=== PATIENT | female | born 1950 | race Caucasian/White ===

== ENCOUNTER → 2017-09-26 | Outpatient (REF) | payer MEDICARE ==
[2017-09-26 12:41] LABS: BASO # 0.1 10^3/uL (0.0-0.2); BASO % 0.8 % (0.0-1.0); EOS # 0.2 10^3/uL (0.0-0.50); EOS % 2.1 % (0.0-3.0); HEMATOCRIT 42.1 % (36.0-47.0); HEMOGLOBIN 13.7 g/dl (12.0-16.0); IMMATURE GRANULOCYTE % 0.1 % (0-3.0); LYMPH # 2.2 10^3/uL (1.5-4.5); LYMPH % 31.5 % (24.0-44.0); MEAN CORPUSCULAR HEMOGLOBIN 30.2 pg (27.0-33.0); MEAN CORPUSCULAR HGB CONC 32.5 g/dl (32.0-36.5); MEAN CORPUSCULAR VOLUME 92.9 fl (80.0-96.0); MONO # 0.7 10^3/uL (0.0-0.8); MONO % 9.6 % (0.0-5.0); NEUTROPHILS % 55.9 % (36.0-66.0); PLATELET COUNT, AUTOMATED 287 10^3/uL (150-450); RED BLOOD COUNT 4.53 10^6/uL (4.00-5.40); RED CELL DISTRIBUTION WIDTH 14.2 % (11.5-14.5); WHITE BLOOD COUNT 7.1 10^3/uL (4.0-10.0)
[2017-09-26 13:24] LABS: ALBUMIN/GLOBULIN RATIO 1.08 (1.00-1.93); ALKALINE PHOSPHATASE 76 U/L (45-117); ALT/SGPT 26 U/L (12-78); ANION GAP 5 MEQ/L (8-16); AST/SGOT 23 U/L (7-37); BILIRUBIN,TOTAL 0.4 MG/DL (0.2-1.0); BLOOD UREA NITROGEN 20 MG/DL (7-18); CARBON DIOXIDE LEVEL 31 MEQ/L (21-32); CHLORIDE LEVEL 104 MEQ/L (98-107); CHOLESTEROL LEVEL 242 MG/DL (<200); CHOLESTEROL RISK RATIO 2.122 (<5); CREATININE FOR GFR 0.72 MG/DL (0.55-1.30); FREE T4 1.05 NG/DL (0.76-1.46); GLOMERULAR FILTRATION RATE > 60.0 (>45); GLUCOSE, FASTING 99 MG/DL (70-100); HDL CHOLESTEROL 114 MG/DL (>40); LDL CHOLESTEROL 111.4 MG/DL (<100); NON-HDL-C 128 MG/DL; POTASSIUM SERUM 4.3 MEQ/L (3.5-5.1); SODIUM LEVEL 140 MEQ/L (136-145); THYROID STIMULATING HORMONE 0.773 uIU/ML (0.358-3.740); TOTAL PROTEIN 7.7 GM/DL (6.4-8.2); TRIGLYCERIDES LEVEL 83 MG/DL (<150)
[2017-09-26 13:56] LABS: HEP C VIRUS AB SCREEN MEDICARE < 0.0 INDEX (<0.8)
== END ==
LOC: M SFHCPLAZ 09:28
DX: K51.20 Ulcerative (chronic) proctitis without complications (principal); Z13.220 Encounter for screening for lipoid disorders; F41.9 Anxiety disorder, unspecified; Z11.59 Encounter for screening for other viral diseases; Z79.899 Other long term (current) drug therapy; Z23 Encounter for immunization
CPT/HCPCS: 84443

== ENCOUNTER → 2018-01-29 | Outpatient (REF) | payer MEDICARE | LOC: M SFHCWAGY 08:58 | DX: Z12.4 Encounter for screening for malignant neoplasm of cervix (principal); N95.2 Postmenopausal atrophic vaginitis | CPT/HCPCS: G0123 ==

== ENCOUNTER → 2018-01-29 | Outpatient (CLI) | payer MEDICARE | LOC: M WHC 08:26 | DX: Z12.31 Encounter for screening mammogram for malignant neoplasm of breast (principal); Z78.0 Asymptomatic menopausal state; Z12.12 Encounter for screening for malignant neoplasm of rectum; Z85.3 Personal history of malignant neoplasm of breast; Z92.89 Personal history of other medical treatment; Z12.4 Encounter for screening for malignant neoplasm of cervix; N95.2 Postmenopausal atrophic vaginitis | CPT/HCPCS: 77067; G0123 ==

== ENCOUNTER → 2018-02-03 | Outpatient (CLI) | payer MEDICARE | LOC: M WHC 07:53 | DX: N95.9 Unspecified menopausal and perimenopausal disorder (principal) | CPT/HCPCS: 77080 ==

== ENCOUNTER 2018-09-14 07:12 | Day surgery (SDC) | payer MEDICARE ==
[~2018-09-14] VITALS: Ht 162.6 cm; Wt 53.5 kg
[~2018-09-14 07:12] MED LIST: ASAC800T3 PO; CALCTAB68 PO; LIDOCAINE 2% INJ 100 MG/5 ML SDV (FOR ANES.) As Ordered ONE; MULT1TAB18 PO; NS 1,000 ML IV ONE; PARO20TA4 PO; PROPOFOL 200 MG/20 ML VIAL As Ordered ONE
--- NOTE | 2018-09-14 09:02 | ROOR ---
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 Procedure: Pre-Anesthesia Assessment: - The heart rate, respiratory rate, oxygen saturations, blood pressure, adequacy of pulmonary ventilation, and response to care were monitored throughout the procedure. The Colonoscope was introduced through the anus and advanced to the terminal ileum, with identification of the appendiceal orifice and IC valve. The colonoscopy was performed without difficulty. The patient tolerated the procedure well. The quality of the bowel preparation was excellent. Findings: The perianal and digital rectal examinations were normal. Non-bleeding internal hemorrhoids were found during retroflexion. The hemorrhoids were small and Grade I (internal hemorrhoids that do not prolapse). No other significant abnormalities were identified in a careful examination of the remainder of the colon. The exam was otherwise without abnormality on direct and retroflexion views. Background biopsies were taken for histology with a cold forceps from the ascending colon, right colon and rectum. These biopsy specimens were sent to Pathology. The exam was otherwise without abnormality on direct and retroflexion views. The terminal ileum appeared normal. Impression: - Non-bleeding internal hemorrhoids. - The examination was otherwise normal on direct and retroflexion views. - The examination was otherwise normal on direct and retroflexion views. - The examined portion of the ileum was normal. - Background biopsies were taken from the ascending colon, right colon and rectum. - The exam was otherwise normal to the cecum. Recommendation: - Patient has a contact number available for emergencies. The signs and symptoms of potential delayed complications were discussed with the patient. Return to normal activities tomorrow. Written discharge instructions were provided to the patient. - High fiber diet. - Discharge patient to home. - Continue present medications. - Await pathology results. - Telephone GI clinic for pathology results in 1 week. - Repeat colonoscopy in 5 years for surveillance based on pathology results. - Return to referring physician. - The findings and recommendations were discussed with the patient's family. Bobby Castañeda MD Bobby Castañeda MD 09/14/2018 9:01:28 AM This report has been signed electronically. Number of Addenda: 0 Note Initiated On: 09/14/2018 8:32 AM Estimated Blood Loss: Estimated blood loss: none.
[2018-09-14 09:30] VITALS: BP 131/68
== END 2018-09-14 09:33 | disposition home or self-care (01) ==
LOC: M OPP 07:12
PROVIDERS: ATTEND Internal Medicine Gastroenterology
DX: K51.20 Ulcerative (chronic) proctitis without complications (principal); K64.0 First degree hemorrhoids; Z88.1 Allergy status to other antibiotic agents

== ENCOUNTER → 2019-05-31 | Outpatient (REF) | payer MEDICARE ==
[~2019-05-31] MED LIST changes: -LIDOCAINE 2% INJ 100 MG/5 ML SDV (FOR ANES.) As Ordered ONE; -NS 1,000 ML IV ONE; -PROPOFOL 200 MG/20 ML VIAL As Ordered ONE
[2019-05-31 10:31] LABS: BLOOD UREA NITROGEN 19 MG/DL (7-18); CALCIUM LEVEL 9.8 MG/DL (8.8-10.2); CARBON DIOXIDE LEVEL 30 MEQ/L (21-32); CHLORIDE LEVEL 107 MEQ/L (98-107); CHOLESTEROL LEVEL 237 MG/DL (<200); CREATININE FOR GFR 0.87 MG/DL (0.55-1.30); GLOMERULAR FILTRATION RATE > 60.0 (>45); GLUCOSE, FASTING 101 MG/DL (70-100); HDL CHOLESTEROL 115 MG/DL (>40); LDL CHOLESTEROL 112 MG/DL (<100); NON-HDL-C 122 MG/DL; POTASSIUM SERUM 4.6 MEQ/L (3.5-5.1); SODIUM LEVEL 143 MEQ/L (136-145); THYROID STIMULATING HORMONE 0.989 uIU/ML (0.358-3.740); TRIGLYCERIDES LEVEL 48 MG/DL (<150)
== END ==
LOC: M SFHCPLAZ 07:53
PROVIDERS: ATTEND Nurse Practitioner Family
DX: E78.2 Mixed hyperlipidemia (principal)

== ENCOUNTER → 2019-08-04 | Outpatient (CLI) | payer MEDICARE ==
--- NOTE | 2019-08-04 15:54 | REPMRS ---
Patient History The patient states she had a clinical breast exam in 2018. No known family history of cancer. Benign excisional biopsy of the right breast, 2010. Digital Woman Screen Mammo: August 04, 2019 - Exam #: [id number] Bilateral CC and MLO view(s) were taken. Technologist: Tabby Marquez, Technologist Prior study comparison: January 29, 2018, bilateral digital woman screen mammo performed at [facility]. January 25, 2014, digital woman screen mammo performed at [facility] [place]. January 07, 2013, bilateral digital mammo screening bilat, performed at [facility]. FINDINGS: The breast tissue is heterogeneously dense. This may lower the sensitivity of mammography. There is a moderate amount of heterogeneously dense fibroglandular tissue which is fairly symmetric. There is no interval development of dominant mass, architectural distortion, or grouped microcalcification typical of malignancy. There has been no change in the appearance of the mammogram from the prior studies. 3-D tomosynthesis shows no additional findings. Assessment: BI-RADS/ACR category 1 mammogram. Negative Mammogram. Recommendation Routine screening mammogram of both breasts in 1 year (for women over age 40). This mammogram was interpreted with the aid of an FDA-approved computer-aided dectection system. Electronically Signed By: Denny Chatman MD 08/04/19 [id number]
== END ==
LOC: M WHC 13:27
PROVIDERS: ATTEND Nurse Practitioner Family
DX: Z12.31 Encounter for screening mammogram for malignant neoplasm of breast (principal); Z86.018 Personal history of other benign neoplasm

== ENCOUNTER → 2020-04-25 | Emergency (ER) | payer MEDICARE ==
[~2020-04-25] MED LIST changes: +AMOX875T2 PO; +ISOVUE-370 76% 100ML VIAL As Ordered ONE; +VALA1TAB5 PO
[2020-04-25 10:19] LABS: BASO # 0.1 10^3/uL (0.0-0.2); BASO % 0.8 % (0.0-1.0); EOS # 0.1 10^3/uL (0.0-0.5); EOS % 1.6 % (0.0-3.0); HEMATOCRIT 46.1 % (36.0-47.0); HEMOGLOBIN 15.2 g/dl (12.0-15.5); LYMPH # 2.4 10^3/uL (1.5-5.0); LYMPH % 38.1 % (24.0-44.0); MEAN CORPUSCULAR HEMOGLOBIN 30.7 pg (27.0-33.0); MEAN CORPUSCULAR VOLUME 93.1 fl (80.0-96.0); MONO # 0.6 10^3/uL (0.0-0.8); MONO % 9.7 % (0.0-5.0); NEUTROPHILS # 3.1 10^3/uL (1.5-8.5); NEUTROPHILS % 49.5 % (36.0-66.0); PLATELET COUNT, AUTOMATED 267 10^3/uL (150-450); RED BLOOD COUNT 4.95 10^6/uL (4.00-5.40); WHITE BLOOD COUNT 6.2 10^3/uL (4.0-10.0)
[2020-04-25 11:41] LABS: BLOOD UREA NITROGEN 14 MG/DL (7-18); CALCIUM LEVEL 9.6 MG/DL (8.8-10.2); CARBON DIOXIDE LEVEL 29 MEQ/L (21-32); CHLORIDE LEVEL 104 MEQ/L (98-107); CREATININE FOR GFR 0.93 MG/DL (0.55-1.30); GLOMERULAR FILTRATION RATE > 60.0 (>45); GLUCOSE, FASTING 106 MG/DL (70-100); POTASSIUM SERUM 3.7 MEQ/L (3.5-5.1); SODIUM LEVEL 138 MEQ/L (136-145)
== END | disposition home or self-care (01) ==
LOC: M ED 08:46
DX: J38.4 Edema of larynx (principal); B02.8 Zoster with other complications; Z88.2 Allergy status to sulfonamides; Z79.899 Other long term (current) drug therapy
CPT/HCPCS: 36415; 70491; 80048; 85025; 87081; Q9967

== ENCOUNTER → 2020-05-05 | Outpatient (CLI) | payer MEDICARE ==
[~2020-05-05] MED LIST changes: +E-Z-GAS II EFFERVESCENT PACKET (SODIUM BICARB./CITRIC ACID/SIMETHICONE) As Ordered ONE; +E-Z-HD 98% w/w 340GM SUSP BTL As Ordered ONE; +E-Z-PAQUE 96% w/w SUSP 176GM BTL As Ordered ONE; -ISOVUE-370 76% 100ML VIAL As Ordered ONE
--- NOTE | 2020-05-17 10:09 | REP ---
ESOPHAGRAM AIR CONTRAST The procedure was performed under the direct supervision of Dr. Chatman. The images were reviewed with Dr. Chatman. A single view PA chest x-ray is submitted as a grain oilseed or pasture farm worker film. The superior mediastinal structures are midline. The heart size is within normal limits. The lungs are clear. Liquid barium and gas-producing granules were given in the erect position, as well as liquid barium in the prone oblique positions in order to perform a double-contrast esophagram examination. The oral and pharyngeal stages of deglutition are unremarkable. Note was made of degenerative disc disease in the cervical spine. Esophageal transport is prompt and efficient, and there is no esophagitis, stricture, mucosal ring, or hiatal hernia. Gastroesophageal reflux is not demonstrated on this examination. IMPRESSION: Essentially unremarkable double contrast esophagram examination. 0.6 minutes of fluoroscopy time was utilized for this procedure. [facility]
== END ==
LOC: M RAD 08:07
PROVIDERS: ATTEND Physician Assistant Medical
DX: R13.10 Dysphagia, unspecified (principal)

== ENCOUNTER → 2020-05-12 | Outpatient (CLI) | payer MEDICARE ==
[~2020-05-12] MED LIST changes: -E-Z-GAS II EFFERVESCENT PACKET (SODIUM BICARB./CITRIC ACID/SIMETHICONE) As Ordered ONE; -E-Z-HD 98% w/w 340GM SUSP BTL As Ordered ONE; -E-Z-PAQUE 96% w/w SUSP 176GM BTL As Ordered ONE; +LIDOCAINE 1% MDV 20ML VIAL As Ordered ONE; +SODIUM BICARBONATE 8.4% INJ 50MEQ 50 ML VIAL As Ordered ONE
[2020-05-12 13:04] VITALS: BP 151/78
--- NOTE | 2020-05-17 10:11 | REP ---
THYROID ULTRASOUND HISTORY: Nontoxic goiter. COMPARISON STUDY: CT neck 04/25/2020. TECHNIQUE: Real-time sonographic evaluation of the thyroid is performed. Both lobes are moderately enlarged and diffusely heterogeneous in echotexture. Right lobe measures 6.3 x 2.1 x 1.9 cm and left lobe 6.6 x 1.7 x 2.8 cm. In the right lobe, there are multiple diffuse tiny cystic areas subcentimeter in size with a nodular echotexture pattern diffusely. There does appear to be a vague oval nodule containing a few microcalcifications in the inferior aspect of the right lobe. This measures approximately 2 cm in diameter maximally. We will proceed with ultrasound-guided fine needle aspiration (FNA) of this nodule. On the left, there are similar findings of scattered tiny cystic areas subcentimeter in size. There is a dominant oval heterogeneous solid nodule, which appears to contain a few small calcifications. This measures 3.6 x 2.2 x 2.2 cm. We will proceed with ultrasound-guided fine needle aspiration (FNA) of that nodule. [facility]
--- NOTE | 2020-05-17 10:12 | REP ---
BILATERAL ULTRASOUND-GUIDED FINE NEEDLE ASPIRATION (FNA) This procedure was performed by CALEB Guillory, under the direct supervision of Dr. Shah. The risks and benefits of the procedure were explained to the patient and informed consent was obtained both verbally and written. Directly prior to the start of the procedure, a formal time-out was completed in the exam room. Both thyroid nodules located in the right and left lobes were localized using ultrasound guidance. The skin was prepped, and draped in a sterile fashion. A total of 11 mL of buffered Lidocaine was used as a local anesthetic. Using ultrasound guidance, four fine needle aspirations were obtained of the right thyroid nodule using 25-gauge needles and four fine needle aspirations were obtained of the left thyroid nodule using 25-gauge needles. The patient tolerated the procedure well, and there were no immediate complications. After the appropriate amount of monitored convalescence, the patient was discharged from the department. This exam has been dictated by CALEB Guillory with Dr. Shah. [facility]
== END ==
LOC: M IRPRO 11:45
PROVIDERS: ATTEND Physician Assistant Medical
DX: D34 Benign neoplasm of thyroid gland (principal); E04.9 Nontoxic goiter, unspecified

== ENCOUNTER → 2020-05-24 | Outpatient (CLI) | payer MEDICARE ==
[~2020-05-24] MED LIST changes: -LIDOCAINE 1% MDV 20ML VIAL As Ordered ONE; -SODIUM BICARBONATE 8.4% INJ 50MEQ 50 ML VIAL As Ordered ONE
[2020-05-24 12:21] LABS: FREE T4 1.03 NG/DL (0.76-1.46); THYROID STIMULATING HORMONE 0.537 uIU/ML (0.358-3.740)
== END ==
LOC: M LAB 10:36
PROVIDERS: ATTEND Physician Assistant Medical
DX: E04.9 Nontoxic goiter, unspecified (principal)

== ENCOUNTER 2021-05-06 13:01 | Emergency (ER) | payer MEDICARE ==
[~2021-05-06] VITALS: Ht 160 cm; Wt 125.0 kg
--- NOTE | 2021-05-06 14:24 | REP ---
INDICATION: trauma. COMPARISON: None. TECHNIQUE: Four views of the right wrist were obtained. FINDINGS: There is a comminuted impacted fracture of the distal radius. There is no angulation deformity. There is an avulsion fracture of the ulnar styloid. Additionally, there is a calcification over the dorsum of the wrist consistent with a triquetral fracture of indeterminate age. IMPRESSION: 1. Comminuted impacted distal radial fracture with an associated ulnar styloid fracture (Colles fracture). 2. There is a triquetral fracture of indeterminate age. Incidental Findings: Collies fracture right wrist. The critical information above was relayed directly by me by telephone to Lanie De La Cruz on 05/06/2021 at 2:20 pm with readback verification. <Electronically signed by Demetrio Morocho > 05/06/21 [id number]
[2021-05-06] MEDS ORDERED: ACETAMINOPHEN 325 MG TAB PO ONE (15:25)
[2021-05-06] MEDS ORDERED: LIDOCAINE W/EPINEPHRINE 1% 20ML VIAL SC ONE (15:30)
[2021-05-06 16:23] VITALS: BP 166/81
--- NOTE | 2021-05-06 17:31 | REP ---
INDICATION: fx. COMPARISON: Right wrist, 05/06/2021, 1:17 p.m.. TECHNIQUE: Two views of the right wrist in plaster were obtained. FINDINGS: Frontal lateral views of the right wrist demonstrate excellent alignment of the fracture of the distal radius. The wrist is in plaster. IMPRESSION: Right wrist fracture in plaster. <Electronically signed by Demetrio Morocho > 05/06/21 [id number]
--- NOTE | 2021-05-06 18:04 | CR.PDOC ---
General Date of Consultation: May 06, 2021 Consultation REASON FOR CONSULTATION/CHIEF COMPLAINT: Right distal radius HISTORY OF PRESENT ILLNESS: Patient states that she went rollerblading for the first time in many years today. She unfortunately lost control when she was going down a slope and had a fall on an outstretched hand. She was wearing wrist braces however she had immediate pain to her wrist and was brought to the emergency room where it was noted that she had a distal radius fracture with some comminution and slight apex volar angulation. ALLERGIES: Please see below. HOME MEDICATIONS: Please see below. PAST MEDICAL HISTORY: Noncontributory PAST SURGICAL HISTORY: Noncontributory FAMILY HISTORY: Noncontributory SOCIAL HISTORY: Patient works in [employer] and is right-hand dominant REVIEW OF SYSTEMS: Denies any pain or discomfort aside from right wrist PHYSICAL EXAMINATION: VITAL SIGNS: Please see below. GENERAL APPEARANCE: Alert and oriented no acute distress. EXTREMITIES: Right wrist in splint from emergency room with Carlos wraps. These were taken down. The patient did not demonstrate any skin lacerations or otherwise. There was some swelling but no significant bruising or otherwise. There was some palpable tenderness to the area of the distal radius. NEUROLOGICAL: Grossly neurovascularly intact sensation to median, ulnar and radial nerve distributions. Motor to these as well as the AIN distribution was confirmed. Palpable radial pulse X-ray imaging in the emergency room demonstrated a slightly impacted fracture of the right distal radius without any obvious intra-articular extension LABORATORY DATA: Please see below. ASSESSMENT/PLAN: The patient demonstrates a right distal radius fracture with some slight angulation. The patient had fairly well controlled pain so she was placed in volar and dorsal splint plaster slabs after placement of a stockinette and web roll with three-point molding applied. Patient tolerated the procedure well. She had tolerated the closed reduction without conscious sedation without any known complications. She was found to be grossly neurovascular intact as described above post splinting. X-ray imaging was independently ordered and reviewed by myself post closed reduction and splinting. This demonstrated good alignment of the distal radius fracture. The patient will be seen for follow-up in approximately 1 week with repeat x-ray imaging in the office. She will be transition to a cast at week 1 or 2 and will require immobilization for approximately 6 weeks nonweightbearing to right upper extremity Vital Signs/I&O Vital Signs Date Time Temp Pulse Resp B/P (MAP) Pulse Ox O2 Delivery O2 Flow Rate FiO2 05/06/21 16:23 96.7 81 166/81 (109) 100 05/06/21 13:02 18 Room Air Allergies Coded Allergies: MS - Sulfa Drugs (Unverified Allergy, Intermediate, HIVES, 09/08/18) MS - Sulfa Drugs Cross Reactors (Unverified Allergy, Intermediate, HIVES, 09/08/18) Home Medications Scheduled (Multi Vitamin) 1 Tab Tab, 1 TAB PO DAILY, (Reported) Calcium/Vitamin D (Calcium 600 + D 600-400 mg-Unit) 1 Tab Tab, 1 TAB PO BID, (Reported) Mesalamine (Asacol Hd) 800 Mg Tab, 1,600 MG PO TID, (Reported) Paroxetine HCl (Paroxetine) 20 Mg Tab, 20 MG PO DAILY, (Reported) YULIA SALINAS MD May 06, 2021 18:04
== END 2021-05-06 18:00 | disposition home or self-care (01) ==
LOC: M ED 13:01
DX: S52.531A Colles' fracture of right radius, initial encounter for closed fracture (principal); Y92.9 Unspecified place or not applicable; Y93.51 Activity, roller skating (inline) and skateboarding; Y99.9 Unspecified external cause status; Z88.1 Allergy status to other antibiotic agents; Z88.2 Allergy status to sulfonamides; Z88.8 Allergy status to other drugs, medicaments and biological substances

== ENCOUNTER → 2021-05-14 | Outpatient (CLI) | payer MEDICARE ==
--- NOTE | 2021-05-14 10:22 | REP ---
INDICATION: RT WRIST FX. COMPARISON: Comparison wrist radiographs May 06, 2021. TECHNIQUE: AP and lateral views. X-rays through cast material. FINDINGS: AP and lateral views of the right wrist demonstrate a distal radial metaphyseal fracture nondisplaced. IMPRESSION: X-rays through cast material demonstrate nondisplaced distal radial fracture. <Electronically signed by Denny Chatman > 05/14/21 101
== END ==
LOC: M SOG 09:34
PROVIDERS: ATTEND Orthopaedic Surgery Adult Reconstructive Orthopaedic Surgery
DX: S52.501A Unspecified fracture of the lower end of right radius, initial encounter for closed fracture (principal); X58.XXXA Exposure to other specified factors, initial encounter; Y92.9 Unspecified place or not applicable

== ENCOUNTER → 2021-06-21 | Outpatient (CLI) | payer MEDICARE ==
--- NOTE | 2021-06-21 13:09 | REP ---
INDICATION: RT WRIST FX. COMPARISON: Multiple the latest 05/14/[address] TECHNIQUE: Two views FINDINGS: The previously described distal radial fracture appears to have healed. There is no acute fracture. There is no change in the alignment. IMPRESSION: As above <Electronically signed by Jose R Prescott > 06/21/21 [id number]
== END ==
LOC: M SOG 07:59
PROVIDERS: ATTEND Orthopaedic Surgery Adult Reconstructive Orthopaedic Surgery
DX: S52.501D Unspecified fracture of the lower end of right radius, subsequent encounter for closed fracture with routine healing (principal); X58.XXXD Exposure to other specified factors, subsequent encounter

== ENCOUNTER → 2023-02-27 | Outpatient (CLI) | payer MEDICARE ==
[2023-02-27 10:51] LABS: BASO # 0.1 10^3/uL (0.0-0.2); BASO % 1.2 % (0.0-1.0); EOS # 0.3 10^3/uL (0.0-0.5); EOS % 4.8 % (0.0-3.0); HEMATOCRIT 42.4 % (36.0-47.0); HEMOGLOBIN 13.7 g/dl (12.0-15.5); LYMPH # 2.2 10^3/uL (1.5-5.0); LYMPH % 33.3 % (24.0-44.0); MEAN CORPUSCULAR HEMOGLOBIN 30.6 pg (27.0-33.0); MEAN CORPUSCULAR HGB CONC 32.3 g/dl (32.0-36.5); MEAN CORPUSCULAR VOLUME 94.6 fl (80.0-96.0); MONO # 0.7 10^3/uL (0.0-0.8); MONO % 10.3 % (2.0-8.0); NEUTROPHILS # 3.3 10^3/uL (1.5-8.5); NEUTROPHILS % 50.1 % (36.0-66.0); PLATELET COUNT, AUTOMATED 272 10^3/uL (150-450); RED BLOOD COUNT 4.48 10^6/uL (4.00-5.40); WHITE BLOOD COUNT 6.7 10^3/uL (4.0-10.0)
[2023-02-27 11:16] LABS: ALBUMIN 3.7 G/DL (3.2-5.2); ALKALINE PHOSPHATASE 77 U/L (46-116); ALT/SGPT 22 U/L (7.0-40); AST/SGOT 23 U/L (<34); BILIRUBIN,TOTAL 0.6 MG/DL (0.3-1.2); BLOOD UREA NITROGEN 18 MG/DL (9-23); CALCIUM LEVEL 10.3 MG/DL (8.3-10.6); CARBON DIOXIDE LEVEL 29 MMOL/L (20-31); CHLORIDE LEVEL 104 MMOL/L (98-107); CHOLESTEROL LEVEL 217 MG/DL (<200); CHOLESTEROL RISK RATIO 2.24 (<5); CREATININE FOR GFR 0.77 MG/DL (0.55-1.30); GLOMERULAR FILTRATION RATE > 60.0 (>39); GLUCOSE, FASTING 100 MG/DL (74-106); HDL CHOLESTEROL 96.6 MG/DL (>40); NON-HDL-C 120.4 MG/DL; POTASSIUM SERUM 4.3 MMOL/L (3.5-5.1); SODIUM LEVEL 139 MMOL/L (136-145); TRIGLYCERIDES LEVEL 57 MG/DL (<150)
[2023-02-27 11:18] LABS: TOTAL 25(OH) VITAMIN D 37.4 NG/ML (20.0-100.0)
== END ==
LOC: M PLALAB 07:58
PROVIDERS: ATTEND Nurse Practitioner Family
DX: K51.919 Ulcerative colitis, unspecified with unspecified complications (principal); E78.5 Hyperlipidemia, unspecified; F41.9 Anxiety disorder, unspecified; E55.9 Vitamin D deficiency, unspecified

== ENCOUNTER → 2023-02-27 | Outpatient (CLI) | payer MEDICARE | LOC: M WHC 06:58 | PROVIDERS: ATTEND Nurse Practitioner Family | DX: Z12.31 Encounter for screening mammogram for malignant neoplasm of breast (principal); M85.88 Other specified disorders of bone density and structure, other site; M81.0 Age-related osteoporosis without current pathological fracture; K51.919 Ulcerative colitis, unspecified with unspecified complications; E78.5 Hyperlipidemia, unspecified; F41.9 Anxiety disorder, unspecified; E55.9 Vitamin D deficiency, unspecified ==

== ENCOUNTER → 2024-03-31 | Outpatient (CLI) | payer MEDICARE ==
[2024-03-31 11:10] LABS: BASO # 0.1 10^3/uL (0.0-0.2); BASO % 1.3 % (0.0-1.0); EOS # 0.3 10^3/uL (0.0-0.5); EOS % 4.2 % (0.0-3.0); HEMATOCRIT 41.8 % (36.0-47.0); HEMOGLOBIN 13.6 g/dl (12.0-15.5); LYMPH # 2.4 10^3/uL (1.5-5.0); LYMPH % 34.8 % (24.0-44.0); MEAN CORPUSCULAR HEMOGLOBIN 31.1 pg (27.0-33.0); MEAN CORPUSCULAR HGB CONC 32.5 g/dl (32.0-36.5); MEAN CORPUSCULAR VOLUME 95.4 fl (80.0-96.0); MONO # 0.8 10^3/uL (0.0-0.8); MONO % 10.9 % (2.0-8.0); NEUTROPHILS # 3.4 10^3/uL (1.5-8.5); NEUTROPHILS % 48.5 % (36.0-66.0); PLATELET COUNT, AUTOMATED 259 10^3/uL (150-450); RED BLOOD COUNT 4.38 10^6/uL (4.00-5.40)
[2024-03-31 11:33] LABS: ALBUMIN 3.5 G/DL (3.2-5.2); ALKALINE PHOSPHATASE 87 U/L (46-116); ALT/SGPT 22 U/L (7.0-40); AST/SGOT 23 U/L (<34); BILIRUBIN,TOTAL 0.4 MG/DL (0.3-1.2); BLOOD UREA NITROGEN 18 MG/DL (9-23); CALCIUM LEVEL 9.6 MG/DL (8.3-10.6); CARBON DIOXIDE LEVEL 30 MMOL/L (20-31); CHLORIDE LEVEL 107 MMOL/L (98-107); CHOLESTEROL LEVEL 214 MG/DL (<200); CHOLESTEROL RISK RATIO 2.39 (<5); CREATININE FOR GFR 0.81 MG/DL (0.55-1.30); GLOMERULAR FILTRATION RATE > 60.0 (>39); GLUCOSE, FASTING 95 MG/DL (74-106); HDL CHOLESTEROL 89.2 MG/DL (>40); LDL CHOLESTEROL 114.4 MG/DL (<100); NON-HDL-C 124.8 MG/DL; POTASSIUM SERUM 4.4 MMOL/L (3.5-5.1); SODIUM LEVEL 141 MMOL/L (136-145); TOTAL PROTEIN 7.1 G/DL (5.7-8.2); TRIGLYCERIDES LEVEL 52 MG/DL (<150)
[2024-03-31 11:34] LABS: THYROID STIMULATING HORMONE 0.646 uIU/ML (0.55-4.78)
== END ==
LOC: M PLALAB 07:02
PROVIDERS: ATTEND Nurse Practitioner Family
DX: E78.5 Hyperlipidemia, unspecified (principal); E55.9 Vitamin D deficiency, unspecified; K51.919 Ulcerative colitis, unspecified with unspecified complications; F41.9 Anxiety disorder, unspecified

== ENCOUNTER → 2024-04-01 | Outpatient (CLI) | payer MEDICARE | LOC: M WHC 07:04 | PROVIDERS: ATTEND Nurse Practitioner Family | DX: Z12.31 Encounter for screening mammogram for malignant neoplasm of breast (principal) ==

== ENCOUNTER → 2024-05-24 | Outpatient (CLI) | payer MEDICARE | LOC: M PLAIMG 10:25 | PROVIDERS: ATTEND Nurse Practitioner Family | DX: J40 Bronchitis, not specified as acute or chronic (principal) ==

== ENCOUNTER → 2024-11-29 | Day surgery (SDC) | payer MEDICARE ==
[~2024-11-29] VITALS: Ht 160 cm; Wt 53.8 kg
[~2024-11-29] MED LIST changes: +MESA400C2 PO; +propofoL 200 MG/20 ML VIAL As Ordered ONE
[2024-11-29 12:47] VITALS: TEMP 97
[2024-11-29 13:15] VITALS: BP 147/67; O2SAT 96
== END | disposition home or self-care (01) ==
LOC: M OPP 11:24
PROVIDERS: ATTEND Internal Medicine Gastroenterology
DX: K51.20 Ulcerative (chronic) proctitis without complications (principal); K63.89 Other specified diseases of intestine; K52.9 Noninfective gastroenteritis and colitis, unspecified; F10.10 Alcohol abuse, uncomplicated; R12 Heartburn; F41.9 Anxiety disorder, unspecified; F32.A Depression, unspecified; Z88.2 Allergy status to sulfonamides

== ENCOUNTER → 2024-12-06 | Outpatient (CLI) | payer MEDICARE ==
[~2024-12-06] MED LIST changes: -propofoL 200 MG/20 ML VIAL As Ordered ONE
[2024-12-06 18:19] LABS: BASO # 0.1 10^3/uL (0.0-0.2); BASO % 0.6 % (0.0-1.0); EOS # 0.1 10^3/uL (0.0-0.5); EOS % 0.5 % (0.0-3.0); LYMPH # 1.6 10^3/uL (1.5-5.0); LYMPH % 16.5 % (24.0-44.0); MEAN CORPUSCULAR HEMOGLOBIN 30.5 pg (27.0-33.0); MEAN CORPUSCULAR HGB CONC 32.4 g/dl (32.0-36.5); MEAN CORPUSCULAR VOLUME 94.1 fl (80.0-96.0); MONO # 1.2 10^3/uL (0.0-0.8); MONO % 12.2 % (2.0-8.0); NEUTROPHILS # 6.9 10^3/uL (1.5-8.5); NEUTROPHILS % 69.6 % (36.0-66.0); PLATELET COUNT, AUTOMATED 392 10^3/uL (150-450); RED BLOOD COUNT 3.93 10^6/uL (4.00-5.40); WHITE BLOOD COUNT 9.9 10^3/uL (4.0-10.0)
[2024-12-06 18:25] LABS: ERYTHROCYTE SEDIMENTATION RATE 55 mm/hr (0-30)
== END ==
LOC: M PLALAB 14:56
PROVIDERS: ATTEND Physician Assistant Medical
DX: L03.211 Cellulitis of face (principal)

== ENCOUNTER → 2024-12-08 | Outpatient (CLI) | payer MEDICARE ==
[2024-12-08 15:30] LABS: BASO % 0.5 % (0.0-1.0); EOS # 0.1 10^3/uL (0.0-0.5); EOS % 0.6 % (0.0-3.0); HEMATOCRIT 33.9 % (36.0-47.0); HEMOGLOBIN 11.2 g/dl (12.0-15.5); LYMPH # 1.7 10^3/uL (1.5-5.0); LYMPH % 19.3 % (24.0-44.0); MEAN CORPUSCULAR HEMOGLOBIN 30.8 pg (27.0-33.0); MEAN CORPUSCULAR VOLUME 93.1 fl (80.0-96.0); MONO # 0.5 10^3/uL (0.0-0.8); MONO % 6.1 % (2.0-8.0); NEUTROPHILS # 6.4 10^3/uL (1.5-8.5); NEUTROPHILS % 72.9 % (36.0-66.0); PLATELET COUNT, AUTOMATED 395 10^3/uL (150-450); RED BLOOD COUNT 3.64 10^6/uL (4.00-5.40); WHITE BLOOD COUNT 8.7 10^3/uL (4.0-10.0)
[2024-12-08 15:38] LABS: ERYTHROCYTE SEDIMENTATION RATE 61 mm/hr (0-30)
== END ==
LOC: M PLALAB 14:29
PROVIDERS: ATTEND Physician Assistant Medical
DX: L03.211 Cellulitis of face (principal)

== ENCOUNTER → 2024-12-23 | Outpatient (REF) | payer MEDICARE | LOC: M LAB REF 10:02 | PROVIDERS: ATTEND Internal Medicine Gastroenterology | DX: K50.10 Crohn's disease of large intestine without complications (principal) ==

== ENCOUNTER → 2025-02-15 | Outpatient (CLI) | payer MEDICARE ==
[~2025-02-15] MED LIST changes: +ATEN50TA2 PO; +AZIT-12 PO; +CEFD1CAP9 PO; +HUMI40IN2 SC; +PARO5TAB PO; +TALK1KIT MC
[2025-02-15 09:33] LABS: BASO # 0.1 10^3/uL (0.0-0.2); BASO % 0.5 % (0.0-1.0); EOS # 0.0 10^3/uL (0.0-0.5); EOS % 0.1 % (0.0-3.0); LYMPH # 2.5 10^3/uL (1.5-5.0); LYMPH % 14.5 % (24.0-44.0); MONO # 1.9 10^3/uL (0.0-0.8); MONO % 10.9 % (2.0-8.0); NEUTROPHILS # 12.8 10^3/uL (1.5-8.5); NEUTROPHILS % 73.7 % (36.0-66.0); PLATELET COUNT, AUTOMATED 324 10^3/uL (150-450)
[2025-02-15 09:48] LABS: APPEARANCE, URINE HAZY (CLEAR); BACTERIA, URINE AUTO 1+ (NEGATIVE); BILIRUBIN, URINE AUTO NEGATIVE (NEGATIVE); BLOOD, URINE BLOOD 3+ (NEGATIVE); GLUCOSE, URINE (UA) AUTO NEGATIVE (NEGATIVE); KETONE, URINE AUTO TRACE mg/dL (NEGATIVE); LEUKOCYTE ESTERASE, URINE AUTO NEGATIVE (NEGATIVE); MUCUS, URINE SMALL (NEGATIVE); NITRITE, URINE AUTO NEGATIVE (NEGATIVE); PROTEIN, URINE AUTO 3+ mg/dL (NEGATIVE); RBC, URINE AUTO 128 /HPF (0-3); SPECIFIC GRAVITY URINE AUTO 1.023 (1.002-1.035); SQUAMOUS EPITHELIAL CELL UR AU 1 /HPF (0-6); UROBILINOGEN, URINE AUTO 0.2 mg/dL (0.0-2.0); WBC, URINE AUTO 12 /HPF (0-3)
[2025-02-15 09:56] LABS: ALT/SGPT 28.0 U/L (7.0-40); AST/SGOT 37.0 U/L (<34); CALCIUM LEVEL 8.1 MG/DL (8.3-10.6); CARBON DIOXIDE LEVEL 21.0 MMOL/L (20-31); CHLORIDE LEVEL 101.0 MMOL/L (98-107); CREATININE FOR GFR 1.76 MG/DL (0.55-1.30); GLOMERULAR FILTRATION RATE 30.4 (>39); POTASSIUM SERUM 4.9 MMOL/L (3.5-5.1); SODIUM LEVEL 136.0 MMOL/L (136-145)
== END ==
LOC: M RAD 08:15
PROVIDERS: ATTEND Student in an Organized Health Care Education/Training Program
DX: R50.9 Fever, unspecified (principal); R06.02 Shortness of breath

== ENCOUNTER 2025-02-19 22:16 | Inpatient (IN) | payer MEDICARE ==
[~2025-02-19] VITALS: Ht 160 cm; Wt 55.5 kg
[~2025-02-19 22:16] MED LIST changes: -ATEN50TA2 PO; -AZIT-12 PO; -CEFD1CAP9 PO; -HUMI40IN2 SC; -PARO5TAB PO; -TALK1KIT MC
[2025-02-19 23:31] LABS: BASO # 0.1 10^3/uL (0.0-0.2); BASO % 0.7 % (0.0-1.0); EOS # 0.3 10^3/uL (0.0-0.5); EOS % 1.6 % (0.0-3.0); LYMPH # 3.9 10^3/uL (1.5-5.0); LYMPH % 22.4 % (24.0-44.0); MONO # 1.8 10^3/uL (0.0-0.8); MONO % 10.5 % (2.0-8.0); NEUTROPHILS # 11.3 10^3/uL (1.5-8.5); NEUTROPHILS % 64.3 % (36.0-66.0); PLATELET COUNT, AUTOMATED 464 10^3/uL (150-450)
[2025-02-20] VITALS (9 sets, daily range): BP systolic 125–172; BP diastolic 58–82; TEMP 97.8–98.7; O2SAT 88–95
[2025-02-20 00:04] LABS: ALT/SGPT 20.0 U/L (7.0-40); AST/SGOT 26.0 U/L (<34); CALCIUM LEVEL 8.9 MG/DL (8.3-10.6); CARBON DIOXIDE LEVEL 21.0 MMOL/L (20-31); CHLORIDE LEVEL 99.0 MMOL/L (98-107); CREATININE FOR GFR 1.3 MG/DL (0.55-1.30); GLOMERULAR FILTRATION RATE 43.7 (>39); POTASSIUM SERUM 4.0 MMOL/L (3.5-5.1); SODIUM LEVEL 134.0 MMOL/L (136-145)
[2025-02-20] MEDS: MORPHINE 4 MG/ML 1 ML VIAL IV PRN (00:52)
[2025-02-20] MEDS: ONDANSETRON 4MG 2ML VIAL IV ONE (00:52)
[2025-02-20] MEDS ORDERED: ISOVUE-370 76% 100 ML VIAL As Ordered ONE (00:55)
[2025-02-20] MEDS ORDERED: MAALOX 30 ML SUSP *UDC PO PRN (04:10)
[2025-02-20] MEDS ORDERED: LEVALBUTEROL 1.25 MG 0.5ML CONCENTRATE NEB INH PRN (04:10)
[2025-02-20 05:03] LABS: MAGNESIUM LEVEL 2.2 MG/DL (1.8-2.4)
[2025-02-20 05:24] LABS: INR 1.31
[2025-02-20] MEDS: AZITHROMYCIN INJ 500 MG, VIAL MATE ADAPTER 1 EACH in D5W 250 ML IV SCH (05:27)
[2025-02-20] MEDS ORDERED: AMOX875T2 PO (06:01)
[2025-02-20] MEDS ORDERED: PARO5TAB PO (06:01)
[2025-02-20] MEDS ORDERED: HUMI40IN2 SC (06:01)
[2025-02-20] MEDS ORDERED: AZIT-12 PO (06:01)
[2025-02-20] MEDS ORDERED: HOME MED LIST COMPLETE! XX SCH (06:05)
[2025-02-20] MEDS: cefTRIAXone SOD 2 GM in DEXTROSE 5% (D5W) ADV/MINI-BAG 50 ML IV SCH (06:44)
[2025-02-20] MEDS: IPRATROPIUM 0.5 MG/ALBUTEROL 2.5 MG INH SOL UD 3 ML INH SCH (07:13)
[2025-02-20 14:12] LABS: BASO # 0.1 10^3/uL (0.0-0.2); BASO % 0.5 % (0.0-1.0); EOS # 0.7 10^3/uL (0.0-0.5); EOS % 4.6 % (0.0-3.0); LYMPH # 4.7 10^3/uL (1.5-5.0); LYMPH % 31.3 % (24.0-44.0); MONO # 1.7 10^3/uL (0.0-0.8); MONO % 11.1 % (2.0-8.0); NEUTROPHILS # 7.8 10^3/uL (1.5-8.5); NEUTROPHILS % 51.9 % (36.0-66.0); PLATELET COUNT, AUTOMATED 435 10^3/uL (150-450)
[2025-02-20 14:37] LABS: CALCIUM LEVEL 8.4 MG/DL (8.3-10.6); CARBON DIOXIDE LEVEL 24.0 MMOL/L (20-31); CHLORIDE LEVEL 101.0 MMOL/L (98-107); CREATININE FOR GFR 1.33 MG/DL (0.55-1.30); GLOMERULAR FILTRATION RATE 42.5 (>39); MAGNESIUM LEVEL 2.3 MG/DL (1.8-2.4); POTASSIUM SERUM 3.9 MMOL/L (3.5-5.1); SODIUM LEVEL 137.0 MMOL/L (136-145)
[2025-02-21] VITALS (8 sets, daily range): BP systolic 133–172; BP diastolic 63–80; TEMP 97.3–99; O2SAT 90–96
[2025-02-21 05:21] LABS: BASO # 0.1 10^3/uL (0.0-0.2); BASO % 0.7 % (0.0-1.0); EOS # 1.1 10^3/uL (0.0-0.5); EOS % 6.3 % (0.0-3.0); LYMPH # 4.8 10^3/uL (1.5-5.0); LYMPH % 29.0 % (24.0-44.0); MONO # 1.9 10^3/uL (0.0-0.8); MONO % 11.6 % (2.0-8.0); NEUTROPHILS # 8.6 10^3/uL (1.5-8.5); NEUTROPHILS % 51.6 % (36.0-66.0); PLATELET COUNT, AUTOMATED 406 10^3/uL (150-450)
[2025-02-21 05:41] LABS: CALCIUM LEVEL 7.9 MG/DL (8.3-10.6); CARBON DIOXIDE LEVEL 23.0 MMOL/L (20-31); CHLORIDE LEVEL 104.0 MMOL/L (98-107); CREATININE FOR GFR 1.46 MG/DL (0.55-1.30); GLOMERULAR FILTRATION RATE 38.0 (>39); MAGNESIUM LEVEL 2.2 MG/DL (1.8-2.4); POTASSIUM SERUM 4.5 MMOL/L (3.5-5.1); SODIUM LEVEL 136.0 MMOL/L (136-145)
[2025-02-21] MEDS ORDERED: MESALAMINE 400 MG PO SCH (09:00)
[2025-02-21] MEDS: PARoxetine 10MG TABLET PO SCH (09:10)
[2025-02-21] MEDS: MESALAMINE 400 MG PO SCH (09:10)
[2025-02-21] MEDS: AZITHROMYCIN 250 MG TABLET PO SCH (09:10)
[2025-02-21] MEDS: ACETAMINOPHEN 325 MG TAB PO PRN (11:21)
[2025-02-21] MEDS: LIDOCAINE 1% MDV 20 ML VIAL SC ONE (14:43)
[2025-02-21 14:59] LABS: LDH LACTATE DEHYDROGENASE 254.0 U/L (120-246)
[2025-02-21 15:24] LABS: SOURCE, BODY FLUID GLUCOSE PLEURAL; SOURCE, BODY FLUID TRIG PLEURAL; TRIGLYCERIDE, BODY FLUID 33 MG/DL (NOT ESTABLISHED)
[2025-02-21 15:25] LABS: LDH, BODY FLUID 668 U/L (NOT ESTABLISHED); SOURCE, BODY FLUID LDH PLEURAL
[2025-02-21 15:26] LABS: AMYLASE, BODY FLUID 22 U/L (NOT ESTABLISHED); CHOLESTEROL, BODY FLUID 60 MG/DL (NOT ESTABLISHED); SOURCE, BODY FLUID AMYLASE PLEURAL; SOURCE, BODY FLUID CHOL PLEURAL
[2025-02-21 15:34] LABS: PH BODY FLUID 7.777 UNITS (NOT ESTABLISHED); SOURCE, BODY FLUID pH PLEURAL
[2025-02-21 15:35] LABS: SOURCE, BODY FLUID ALBUMIN PLEURAL
[2025-02-21 15:37] LABS: VENOUS BASE EXCESS -3.2 (-2.0-2.0); VENOUS HCO3 22.5 MMOL/L (23.0-27.0); VENOUS O2 SATURATION 95.3 % (60.0-80.0); VENOUS PARTIAL PRESSURE CO2 43.4 mmHg (38.0-50.0); VENOUS PARTIAL PRESSURE O2 82.8 mmHg (30.0-50.0); VENOUS PH 7.333 UNITS (7.330-7.430); VENOUS STANDARD HCO3 21.7 MMOL/L; VENOUS TOTAL CO2 23.9 MMOL/L (24.0-28.0)
[2025-02-21 15:40] LABS: SOURCE, BODY FLUID TOT PROTEIN PLEURAL
[2025-02-21 15:43] LABS: APPEARANCE, BODY FLUID CLOUDY (CLEAR); PLEURAL FL COLOR ORANGE (COLORLESS); SOURCE, BODY FLUID PLEURAL
[2025-02-22] VITALS (8 sets, daily range): BP systolic 148–180; BP diastolic 63–90; TEMP 97.3–98.7; O2SAT 94–97
[2025-02-22 05:38] LABS: BASO # 0.1 10^3/uL (0.0-0.2); BASO % 0.6 % (0.0-1.0); EOS # 1.1 10^3/uL (0.0-0.5); EOS % 8.7 % (0.0-3.0); LYMPH # 4.0 10^3/uL (1.5-5.0); LYMPH % 32.6 % (24.0-44.0); MONO # 1.2 10^3/uL (0.0-0.8); MONO % 9.6 % (2.0-8.0); NEUTROPHILS # 5.9 10^3/uL (1.5-8.5); NEUTROPHILS % 47.9 % (36.0-66.0); PLATELET COUNT, AUTOMATED 446 10^3/uL (150-450)
[2025-02-22 06:11] LABS: CALCIUM LEVEL 8.5 MG/DL (8.3-10.6); CARBON DIOXIDE LEVEL 23.0 MMOL/L (20-31); CHLORIDE LEVEL 108.0 MMOL/L (98-107); CREATININE FOR GFR 1.16 MG/DL (0.55-1.30); GLOMERULAR FILTRATION RATE 50.1 (>39); MAGNESIUM LEVEL 2.2 MG/DL (1.8-2.4); POTASSIUM SERUM 4.6 MMOL/L (3.5-5.1); SODIUM LEVEL 142.0 MMOL/L (136-145)
[2025-02-23] VITALS (9 sets, daily range): BP systolic 146–180; BP diastolic 62–90; TEMP 97.9–98; O2SAT 95–97
[2025-02-23] MEDS: amLODIPine 5 MG TAB PO ONE (01:08)
[2025-02-23 08:34] LABS: BASO # 0.1 10^3/uL (0.0-0.2); BASO % 0.9 % (0.0-1.0); EOS # 0.8 10^3/uL (0.0-0.5); EOS % 6.3 % (0.0-3.0); LYMPH # 3.6 10^3/uL (1.5-5.0); LYMPH % 27.1 % (24.0-44.0); MONO # 1.1 10^3/uL (0.0-0.8); MONO % 8.6 % (2.0-8.0); NEUTROPHILS # 7.4 10^3/uL (1.5-8.5); NEUTROPHILS % 56.3 % (36.0-66.0); PLATELET COUNT, AUTOMATED 552 10^3/uL (150-450)
[2025-02-23 08:58] LABS: CALCIUM LEVEL 8.6 MG/DL (8.3-10.6); CARBON DIOXIDE LEVEL 22.0 MMOL/L (20-31); CHLORIDE LEVEL 107.0 MMOL/L (98-107); CREATININE FOR GFR 1.13 MG/DL (0.55-1.30); GLOMERULAR FILTRATION RATE 51.7 (>39); POTASSIUM SERUM 4.9 MMOL/L (3.5-5.1); SODIUM LEVEL 141.0 MMOL/L (136-145)
[2025-02-23] MEDS ORDERED: AZIT-12 PO (10:09)
[2025-02-23] MEDS ORDERED: CEFD1CAP9 PO (10:09)
[2025-02-23] MEDS ORDERED: TALK1KIT MC (12:36)
[2025-02-23] MEDS ORDERED: ATEN50TA2 PO (12:36)
[2025-02-24 22:40] LABS: MYCOPLASMA PNEUMONIAE IGG 1.25 (<=0.90); MYCOPLASMA PNEUMONIAE IGM 125.0 U/mL (<770)
[2025-02-26 18:03] LABS: FUNGITELL, SERUM < 31 pg/mL (<60)
== END 2025-02-23 13:16 | disposition home or self-care (01) | DRG 186 ==
LOC: M ED 22:16 → M ED INP 02-20 04:07 → M ICU 02-20 05:01 → M PCU 02-20 17:55
PROVIDERS: ADMIT Family Medicine; ATTEND General Practice
PROC: 0W993ZZ Drainage of Right Pleural Cavity, Percutaneous Approach (ICD-10-PCS; principal; 2025-02-21)
DX: J90 Pleural effusion, not elsewhere classified (principal); J18.9 Pneumonia, unspecified organism; N17.9 Acute kidney failure, unspecified; J98.11 Atelectasis; K51.90 Ulcerative colitis, unspecified, without complications; J81.1 Chronic pulmonary edema; D84.9 Immunodeficiency, unspecified; M85.80 Other specified disorders of bone density and structure, unspecified site; R07.81 Pleurodynia; R19.7 Diarrhea, unspecified; E78.5 Hyperlipidemia, unspecified; J45.909 Unspecified asthma, uncomplicated; F32.A Depression, unspecified; I16.0 Hypertensive urgency; F41.9 Anxiety disorder, unspecified; M19.90 Unspecified osteoarthritis, unspecified site; K64.8 Other hemorrhoids; E55.9 Vitamin D deficiency, unspecified; B35.1 Tinea unguium; Z85.3 Personal history of malignant neoplasm of breast; Z85.828 Personal history of other malignant neoplasm of skin; L82.1 Other seborrheic keratosis; Z79.899 Other long term (current) drug therapy; Z88.2 Allergy status to sulfonamides; Z88.8 Allergy status to other drugs, medicaments and biological substances

== ENCOUNTER 2025-03-07 09:27 | Inpatient (IN) | payer MEDICARE ==
[~2025-03-07] VITALS: Ht 160 cm; Wt 50.7 kg
[~2025-03-07 09:27] MED LIST changes: +ATEN50TA2 PO; +AZIT-12 PO; +CEFD1CAP9 PO; +HUMI40IN2 SC; +PARO5TAB PO; +TALK1KIT MC
[2025-03-07 10:27] LABS: BASO # 0.1 10^3/uL (0.0-0.2); BASO % 1.3 % (0.0-1.0); EOS # 0.1 10^3/uL (0.0-0.5); EOS % 1.2 % (0.0-3.0); LYMPH # 3.0 10^3/uL (1.5-5.0); LYMPH % 28.6 % (24.0-44.0); MONO # 0.6 10^3/uL (0.0-0.8); MONO % 5.6 % (2.0-8.0); NEUTROPHILS # 6.6 10^3/uL (1.5-8.5); NEUTROPHILS % 62.9 % (36.0-66.0); PLATELET COUNT, AUTOMATED 459 10^3/uL (150-450)
[2025-03-07 10:31] LABS: VENOUS BASE EXCESS -5.7 (-2.0-2.0); VENOUS HCO3 20.7 MMOL/L (23.0-27.0); VENOUS O2 SATURATION 46.2 % (60.0-80.0); VENOUS PARTIAL PRESSURE CO2 44.0 mmHg (38.0-50.0); VENOUS PARTIAL PRESSURE O2 29.9 mmHg (30.0-50.0); VENOUS PH 7.290 UNITS (7.330-7.430); VENOUS STANDARD HCO3 18.8 MMOL/L; VENOUS TOTAL CO2 22.0 MMOL/L (24.0-28.0)
[2025-03-07 10:53] LABS: ALT/SGPT 42.0 U/L (7.0-40); AST/SGOT 52.0 U/L (<34); CALCIUM LEVEL 9.2 MG/DL (8.3-10.6); CARBON DIOXIDE LEVEL 21.0 MMOL/L (20-31); CHLORIDE LEVEL 107.0 MMOL/L (98-107); CREATININE FOR GFR 1.07 MG/DL (0.55-1.30); GLOMERULAR FILTRATION RATE 55.2 (>39); POTASSIUM SERUM 4.6 MMOL/L (3.5-5.1); SODIUM LEVEL 141.0 MMOL/L (136-145)
[2025-03-07] MEDS ORDERED: HOME MED LIST COMPLETE! XX SCH (11:30)
[2025-03-07] MEDS ORDERED: ATEN50TA2 PO (11:30)
[2025-03-07] MEDS: FUROSEMIDE 40 MG/4 ML VIAL IV ONE (12:32)
[2025-03-07] MEDS ORDERED: ACETAMINOPHEN 325 MG TAB PO PRN (12:45)
[2025-03-07] MEDS: POTASSIUM CHLORIDE 10MEQ SR TABLET PO SCH (13:05)
[2025-03-07] MEDS: PIPERACILLIN/TAZOBACTAM SOD 4.5 GM in DEXTROSE 5% (D5W) ADV/MINI-BAG 50 ML IV ONE (13:05)
[2025-03-07] MEDS: PANTOPRAZOLE 40MG VIAL IV SCH (14:05)
[2025-03-07] MEDS: amLODIPine 5 MG TAB PO SCH (14:19)
[2025-03-07 15:02] VITALS: BP 178/98; O2SAT 94
[2025-03-07] MEDS: FUROSEMIDE 40 MG/4 ML VIAL IV SCH (16:13)
[2025-03-07 17:32] VITALS: TEMP 97.5
[2025-03-07 19:35] VITALS: BP 171/78; TEMP 96.5; O2SAT 95
[2025-03-07] MEDS: MESALAMINE 400 MG PO SCH (20:01)
[2025-03-07 23:09] VITALS: BP 161/74; TEMP 97.1; O2SAT 94
[2025-03-08 03:12] VITALS: BP 153/76; TEMP 97.3; O2SAT 93
[2025-03-08 06:05] LABS: BASO # 0.1 10^3/uL (0.0-0.2); BASO % 1.4 % (0.0-1.0); EOS # 0.4 10^3/uL (0.0-0.5); EOS % 4.1 % (0.0-3.0); LYMPH # 3.1 10^3/uL (1.5-5.0); LYMPH % 30.4 % (24.0-44.0); MONO # 0.7 10^3/uL (0.0-0.8); MONO % 7.1 % (2.0-8.0); NEUTROPHILS # 5.8 10^3/uL (1.5-8.5); NEUTROPHILS % 56.6 % (36.0-66.0); PLATELET COUNT, AUTOMATED 416 10^3/uL (150-450)
[2025-03-08 06:23] LABS: CALCIUM LEVEL 8.5 MG/DL (8.3-10.6); CARBON DIOXIDE LEVEL 26.0 MMOL/L (20-31); CHLORIDE LEVEL 102.0 MMOL/L (98-107); CREATININE FOR GFR 1.22 MG/DL (0.55-1.30); GLOMERULAR FILTRATION RATE 47.2 (>39); MAGNESIUM LEVEL 1.5 MG/DL (1.8-2.4); POTASSIUM SERUM 3.7 MMOL/L (3.5-5.1); SODIUM LEVEL 141.0 MMOL/L (136-145)
[2025-03-08 07:35] VITALS: BP 150/70; TEMP 97.4; O2SAT 94
[2025-03-08] MEDS: MAG SULF 1GM/100ML (MAG RUN) 1 GM in IV 1 EA IV SCH (09:00)
[2025-03-08] MEDS: PARoxetine 10MG TABLET PO SCH (09:29)
[2025-03-08] MEDS: LOSARTAN 25 MG TAB PO SCH (09:30)
[2025-03-08] MEDS: FUROSEMIDE 40 MG/4 ML VIAL IV SCH (09:30)
[2025-03-08 12:04] VITALS: BP 143/72; TEMP 97.5; O2SAT 96
[2025-03-08 16:53] VITALS: BP 140/70; TEMP 97.1; O2SAT 94
[2025-03-08 19:02] VITALS: BP 159/75; TEMP 97.3; O2SAT 96
[2025-03-08 23:02] VITALS: BP 151/75; TEMP 97.4; O2SAT 95
[2025-03-08 23:39] LABS: CALCIUM LEVEL 8.1 MG/DL (8.3-10.6); CARBON DIOXIDE LEVEL 28.0 MMOL/L (20-31); CHLORIDE LEVEL 101.0 MMOL/L (98-107); CREATININE FOR GFR 1.33 MG/DL (0.55-1.30); GLOMERULAR FILTRATION RATE 42.5 (>39); MAGNESIUM LEVEL 1.9 MG/DL (1.8-2.4); POTASSIUM SERUM 3.8 MMOL/L (3.5-5.1); SODIUM LEVEL 141.0 MMOL/L (136-145)
[2025-03-09 03:03] VITALS: BP 145/74; TEMP 97.6; O2SAT 95
[2025-03-09 05:27] LABS: BASO # 0.1 10^3/uL (0.0-0.2); BASO % 1.0 % (0.0-1.0); EOS # 0.6 10^3/uL (0.0-0.5); EOS % 5.6 % (0.0-3.0); LYMPH # 3.9 10^3/uL (1.5-5.0); LYMPH % 38.9 % (24.0-44.0); MONO # 1.0 10^3/uL (0.0-0.8); MONO % 9.8 % (2.0-8.0); NEUTROPHILS # 4.5 10^3/uL (1.5-8.5); NEUTROPHILS % 44.4 % (36.0-66.0); PLATELET COUNT, AUTOMATED 367 10^3/uL (150-450)
[2025-03-09] MEDS ORDERED: AMLO1TAB25 PO (05:29)
[2025-03-09] MEDS ORDERED: LASI40TA9 PO (05:29)
[2025-03-09 05:49] LABS: CALCIUM LEVEL 7.7 MG/DL (8.3-10.6); CARBON DIOXIDE LEVEL 28.0 MMOL/L (20-31); CHLORIDE LEVEL 102.0 MMOL/L (98-107); CREATININE FOR GFR 1.23 MG/DL (0.55-1.30); GLOMERULAR FILTRATION RATE 46.7 (>39); MAGNESIUM LEVEL 1.7 MG/DL (1.8-2.4); POTASSIUM SERUM 3.5 MMOL/L (3.5-5.1); SODIUM LEVEL 143.0 MMOL/L (136-145)
[2025-03-09] MEDS: CALCIUM GLUCONATE 1,000 MG in DEXTROSE 5% (D5W) MINI-BAG PLU 100 ML IV ONE ×2 (05:52→08:04)
[2025-03-09 05:54] VITALS: BP 166/78
[2025-03-09 07:21] VITALS: BP 174/79; TEMP 97.5; O2SAT 95
[2025-03-09] MEDS: MAG SULF 1GM/100ML (MAG RUN) 1 GM in IV 1 EA IV SCH (08:04)
[2025-03-09] MEDS: POTASSIUM CHLORIDE 10MEQ SR TABLET PO ONE (08:05)
[2025-03-09] MEDS: FUROSEMIDE 40 MG TAB PO ONE (08:05)
[2025-03-09 08:10] VITALS: BP 174/79
[2025-03-09] MEDS: amLODIPine 10 MG TAB PO SCH (08:10)
[2025-03-09 09:20] VITALS: BP 153/78
[2025-03-09 09:48] VITALS: BP 141/67
== END 2025-03-09 10:09 | disposition home or self-care (01) | DRG 291 ==
LOC: M ED 09:27 → M ED INP 12:42 → M PCU 14:57
PROVIDERS: ADMIT Internal Medicine Nephrology; ATTEND General Practice
DX: I11.0 Hypertensive heart disease with heart failure (principal); E43 Unspecified severe protein-calorie malnutrition; I50.33 Acute on chronic diastolic (congestive) heart failure; K51.90 Ulcerative colitis, unspecified, without complications; Z68.1 Body mass index [BMI] 19.9 or less, adult; N17.9 Acute kidney failure, unspecified; J45.909 Unspecified asthma, uncomplicated; K52.9 Noninfective gastroenteritis and colitis, unspecified; M81.0 Age-related osteoporosis without current pathological fracture; R63.0 Anorexia; E88.09 Other disorders of plasma-protein metabolism, not elsewhere classified; E78.5 Hyperlipidemia, unspecified; E83.42 Hypomagnesemia; E83.51 Hypocalcemia; Z88.2 Allergy status to sulfonamides; Z88.8 Allergy status to other drugs, medicaments and biological substances; Z79.899 Other long term (current) drug therapy; K64.8 Other hemorrhoids; Z85.828 Personal history of other malignant neoplasm of skin; Z98.41 Cataract extraction status, right eye; Z98.42 Cataract extraction status, left eye

== ENCOUNTER → 2025-03-15 | Outpatient (CLI) | payer MEDICARE ==
[~2025-03-15] MED LIST changes: +AMLO1TAB25 PO; +LASI40TA9 PO
[2025-03-15 13:54] LABS: BASO # 0.1 10^3/uL (0.0-0.2); BASO % 1.4 % (0.0-1.0); EOS # 0.6 10^3/uL (0.0-0.5); EOS % 8.3 % (0.0-3.0); LYMPH # 2.6 10^3/uL (1.5-5.0); LYMPH % 33.4 % (24.0-44.0); MONO # 0.7 10^3/uL (0.0-0.8); MONO % 8.6 % (2.0-8.0); NEUTROPHILS # 3.7 10^3/uL (1.5-8.5); NEUTROPHILS % 48.0 % (36.0-66.0); PLATELET COUNT, AUTOMATED 299 10^3/uL (150-450)
[2025-03-15 14:09] LABS: ALT/SGPT 30.0 U/L (7.0-40); AST/SGOT 40.0 U/L (<34); CALCIUM LEVEL 8.9 MG/DL (8.3-10.6); CARBON DIOXIDE LEVEL 29.0 MMOL/L (20-31); CHLORIDE LEVEL 101.0 MMOL/L (98-107); CREATININE FOR GFR 1.23 MG/DL (0.55-1.30); GLOMERULAR FILTRATION RATE 46.7 (>39); MAGNESIUM LEVEL 2.1 MG/DL (1.8-2.4); POTASSIUM SERUM 4.3 MMOL/L (3.5-5.1); SODIUM LEVEL 139.0 MMOL/L (136-145)
== END ==
LOC: M PLALAB 09:24
PROVIDERS: ATTEND Nurse Practitioner Family
DX: I11.0 Hypertensive heart disease with heart failure (principal); I50.9 Heart failure, unspecified

== ENCOUNTER → 2025-04-04 | Outpatient (CLI) | payer MEDICARE | LOC: M WHC 13:50 | PROVIDERS: ATTEND Nurse Practitioner Family | DX: Z12.31 Encounter for screening mammogram for malignant neoplasm of breast (principal); M81.0 Age-related osteoporosis without current pathological fracture; R92.333 Mammographic heterogeneous density, bilateral breasts; M85.88 Other specified disorders of bone density and structure, other site ==

== ENCOUNTER → 2025-04-06 | Outpatient (CLI) | payer MEDICARE ==
[2025-04-06 08:11] LABS: BASO # 0.1 10^3/uL (0.0-0.2); BASO % 1.0 % (0.0-1.0); EOS # 0.4 10^3/uL (0.0-0.5); EOS % 5.4 % (0.0-3.0); LYMPH # 2.4 10^3/uL (1.5-5.0); LYMPH % 30.7 % (24.0-44.0); MONO # 0.8 10^3/uL (0.0-0.8); MONO % 9.6 % (2.0-8.0); NEUTROPHILS # 4.1 10^3/uL (1.5-8.5); NEUTROPHILS % 52.9 % (36.0-66.0); PLATELET COUNT, AUTOMATED 338 10^3/uL (150-450)
[2025-04-06 08:43] LABS: ALT/SGPT 20.0 U/L (7.0-40); AST/SGOT 33.0 U/L (<34); CALCIUM LEVEL 9.1 MG/DL (8.3-10.6); CARBON DIOXIDE LEVEL 27.0 MMOL/L (20-31); CHLORIDE LEVEL 108.0 MMOL/L (98-107); CHOLESTEROL LEVEL 198.0 MG/DL (<200); CHOLESTEROL RISK RATIO 3.23 (<5); CREATININE FOR GFR 1.03 MG/DL (0.55-1.30); GLOMERULAR FILTRATION RATE 57.8 (>39); LDL CHOLESTEROL 120.3 MG/DL (<100); NON-HDL-C 136.7 MG/DL; POTASSIUM SERUM 3.8 MMOL/L (3.5-5.1); SODIUM LEVEL 146.0 MMOL/L (136-145); TRIGLYCERIDES LEVEL 82.0 MG/DL (<150)
== END ==
LOC: M LAB 07:27
PROVIDERS: ATTEND Nurse Practitioner Family
DX: E55.9 Vitamin D deficiency, unspecified (principal); F41.9 Anxiety disorder, unspecified; R78.5 Finding of other psychotropic drug in blood; I50.32 Chronic diastolic (congestive) heart failure; R06.02 Shortness of breath; N18.9 Chronic kidney disease, unspecified

== ENCOUNTER → 2025-04-06 | Outpatient (CLI) | payer MEDICARE ==
[2025-04-06 08:31] LABS: ALT/SGPT 20.0 U/L (7.0-40); AST/SGOT 33.0 U/L (<34); CALCIUM LEVEL 9.1 MG/DL (8.3-10.6); CARBON DIOXIDE LEVEL 27.0 MMOL/L (20-31); CHLORIDE LEVEL 108.0 MMOL/L (98-107); CREATININE FOR GFR 1.04 MG/DL (0.55-1.30); GLOMERULAR FILTRATION RATE 57.1 (>39); POTASSIUM SERUM 3.7 MMOL/L (3.5-5.1); SODIUM LEVEL 145.0 MMOL/L (136-145)
== END ==
LOC: M LAB 07:31
PROVIDERS: ATTEND Internal Medicine Cardiovascular Disease
DX: I50.32 Chronic diastolic (congestive) heart failure (principal); R06.02 Shortness of breath; N18.9 Chronic kidney disease, unspecified

== ENCOUNTER → 2025-05-26 | Outpatient (CLI) | payer MEDICARE ==
[2025-05-26 10:43] LABS: CALCIUM LEVEL 9.2 MG/DL (8.3-10.6); CARBON DIOXIDE LEVEL 28.0 MMOL/L (20-31); CHLORIDE LEVEL 105.0 MMOL/L (98-107); CREATININE FOR GFR 1.05 MG/DL (0.55-1.30); GLOMERULAR FILTRATION RATE 56.1 (>39); MAGNESIUM LEVEL 1.9 MG/DL (1.8-2.4); PHOSPHORUS LEVEL 4.1 MG/DL (2.4-5.1); POTASSIUM SERUM 4.3 MMOL/L (3.5-5.1); SODIUM LEVEL 141.0 MMOL/L (136-145)
== END ==
LOC: M LAB 09:24
PROVIDERS: ATTEND Registered Nurse
DX: I50.32 Chronic diastolic (congestive) heart failure (principal)

== ENCOUNTER → 2025-06-21 | Outpatient (CLI) | payer MEDICARE | LOC: M CARPUL 09:42 | PROVIDERS: ATTEND Internal Medicine Cardiovascular Disease | DX: I50.32 Chronic diastolic (congestive) heart failure (principal); R06.02 Shortness of breath | CPT/HCPCS: 78452; 93017; A9500; J2785 ==

== ENCOUNTER → 2025-07-04 | Outpatient (CLI) | payer MEDICARE ==
[2025-07-04 12:38] LABS: CALCIUM LEVEL 9.1 MG/DL (8.3-10.6); CARBON DIOXIDE LEVEL 26.0 MMOL/L (20-31); CHLORIDE LEVEL 105.0 MMOL/L (98-107); CREATININE FOR GFR 1.23 MG/DL (0.55-1.30); GLOMERULAR FILTRATION RATE 46.4 (>39); MAGNESIUM LEVEL 1.9 MG/DL (1.8-2.4); POTASSIUM SERUM 5.3 MMOL/L (3.5-5.1); SODIUM LEVEL 140.0 MMOL/L (136-145)
== END ==
LOC: M LAB 10:45
PROVIDERS: ATTEND Internal Medicine Cardiovascular Disease
DX: I50.32 Chronic diastolic (congestive) heart failure (principal)

== ENCOUNTER → 2025-07-20 | Outpatient (CLI) | payer MEDICARE ==
[2025-07-20 15:41] LABS: CALCIUM LEVEL 8.7 MG/DL (8.3-10.6); CARBON DIOXIDE LEVEL 28.0 MMOL/L (20-31); CHLORIDE LEVEL 106.0 MMOL/L (98-107); CREATININE FOR GFR 1.16 MG/DL (0.55-1.30); GLOMERULAR FILTRATION RATE 49.8 (>39); POTASSIUM SERUM 4.6 MMOL/L (3.5-5.1); SODIUM LEVEL 141.0 MMOL/L (136-145)
== END ==
LOC: M LAB 13:53
PROVIDERS: ATTEND Nurse Practitioner Family
DX: E87.5 Hyperkalemia (principal); I50.32 Chronic diastolic (congestive) heart failure